=== PATIENT | female | born 1985 | race Caucasian/White ===

== ENCOUNTER 2022-02-19 11:58 | Inpatient (IN) | payer OTHER, SELFPAY ==
[2022-02-19] VITALS (73 sets, daily range): BP systolic 69–206; BP diastolic 38–188; PULSE 55–125; RESP 18; TEMP 36.4–36.7; O2SAT 83–100
[2022-02-19] MEDS: LACTATED RINGERS 1,000 ML 125 ML IV CONT ×2 (12:45→15:09)
[2022-02-19] MEDS: AMPICILLIN 2 GM/NS 100 ML 2 GM/100 ML BAG IVPB (12:45)
[2022-02-19 12:51] LABS: Basophils Absolute Auto 0.1 K/mm3 (0.0-0.1); Basophils Percent Auto 0.3 % (0.2-1.2); Eosinophils Absolute Auto 0.1 K/mm3 (0-0.3); Eosinophils Percent Auto 0.5 % (0-4.4); Hemoglobin 12.6 g/dL (12.0-15.0); Immature Granulocyte Absolute 0.07 K/mm3 (0.00-0.031); Immature Granulocyte Percent A 0.5 % (0-0.5); Lymphocytes Absolute Auto 2.23 K/mm3 (0.9-3.2); Mean Corpuscular HGB Conc 32.3 g/dl (32-36); Mean Corpuscular Hemoglobin 30.4 pg (26-34); Mean Corpuscular Volume 94.2 fl (80-100); Mean Platelet Volume 9.9 fl (7.4-10.4); Monocytes Absolute Auto 0.8 K/mm3 (0.1-0.6); Monocytes Percent Auto 5.6 % (2.6-8.5); Neutrophils Absolute Auto 11.6 K/mm3 (1.3-6.7); Neutrophils Percent Auto 78.1 % (45.5-73.1); Platelet Count Result 441 k/mm3 (150-375); Red Blood Count 4.14 M/mm3 (4.2-5.4); Red Cell Distribution Width 13.5 % (11.5-14.5); White Blood Count 14.9 K/mm3 (4.5-10.0)
[2022-02-19 13:27] LABS: Amphetamine Screen Urine Negative (Negative); Barbiturate Screen Urine Negative (Negative); Benzodiazepines Screen Urine Negative (Negative); Cannabinoid Screen Urine Positive (Negative); Cocaine Screen Urine Negative (Negative); Methadone Screen Urine Negative (Negative); Opiate Screen Urine Negative (Negative); Phencyclidine Screen Urine Negative (Negative)
--- NOTE | 2022-02-19 15:10 | WPDANESEPP ---
Anes - Eval Pre Procedure Procedure: labor epidural Date/Time: 02/19/22 15:10 Preop Diagnosis: labor pain Pre Op Diagnosis: Labor Patient Data Age: 36 Gender: F Height: Weight: Last Vital Signs Pulse 76 02/19/22 15:06 BP 84/67 L 02/19/22 15:06 Pulse Ox 100 02/19/22 15:05 O2 Del Method Room Air 02/19/22 13:00 Laboratory Tests 02/19/22 02/19/22 02/19/22 12:37 12:37 12:37 WBC 14.9 K/mm3 H K/mm3 (4.5-10.0) RBC 4.14 M/mm3 L M/mm3 (4.2-5.4) Hgb 12.6 g/dL g/dL (12.0-15.0) Hct 39.0 % % (37.0-47.0) MCV 94.2 fl fl (80-100) MCH 30.4 pg pg (26-34) MCHC 32.3 g/dl g/dl (32-36) RDW 13.5 % % (11.5-14.5) Plt Count 441 k/mm3 H k/mm3 (150-375) MPV 9.9 fl fl (7.4-10.4) Immature Gran % (Auto) 0.5 % % (0-0.5) Neut % (Auto) 78.1 % H % (45.5-73.1) Lymph % (Auto) 15.0 % L % (18.3-44.2) [place] % (Auto) 5.6 % % (2.6-8.5) Eos % (Auto) 0.5 % % (0-4.4) Baso % (Auto) 0.3 % % (0.2-1.2) Lymph # (Auto) 2.23 K/mm3 K/mm3 (0.9-3.2) [place] # (Auto) 0.8 K/mm3 H K/mm3 (0.1-0.6) Eos # (Auto) 0.1 K/mm3 K/mm3 (0-0.3) Baso # (Auto) 0.1 K/mm3 K/mm3 (0.0-0.1) Abs Immat Gran (auto) 0.07 K/mm3 H K/mm3 (0.00-0.031) Absolute Neuts (auto) 11.6 K/mm3 H K/mm3 (1.3-6.7) Absolute Nucleated RBC 0.0 K/mm3 K/mm3 (0.0-0.012) Nucleated RBC % 0.0 % % (0.0-0.2) Urine Opiates Screen Urine Methadone Screen Ur Barbiturates Screen Ur Phencyclidine Scrn Ur Amphetamine Screen U Benzodiazepines Scrn Urine Cocaine Screen U Cannabinoids Screen RPR Pending Blood Type A Positive Antibody Screen Negative 02/19/22 12:42 WBC RBC Hgb Hct MCV MCH MCHC RDW Plt Count MPV Immature Gran % (Auto) Neut % (Auto) Lymph % (Auto) [place] % (Auto) Eos % (Auto) Baso % (Auto) Lymph # (Auto) [place] # (Auto) Eos # (Auto) Baso # (Auto) Abs Immat Gran (auto) Absolute Neuts (auto) Absolute Nucleated RBC Nucleated RBC % Urine Opiates Screen Negative (Negative) Urine Methadone Screen Negative (Negative) Ur Barbiturates Screen Negative (Negative) Ur Phencyclidine Scrn Negative (Negative) Ur Amphetamine Screen Negative (Negative) U Benzodiazepines Scrn Negative (Negative) Urine Cocaine Screen Negative (Negative) U Cannabinoids Screen Positive A (Negative) RPR Blood Type Antibody Screen Patient hx anesthesia problems: none Family hx anesthesia problems: none Results Review: All pre-operative results and documents have been reviewed as part of the pre-operative evaluation. [facility] Social History Social History Substance use: current Spiritual care concerns: No Exam Day of Procedure 02/19/22 15:10 Patient weight: normal Heart: regular rate and rhythm Lungs: clear to auscultation and normal air movement Airway: Mallampati scale Neurological: alert and oriented
[2022-02-19] MEDS: OXYTOCIN 30 UNITS/NS 500 ML 30 UNITS/500 ML BAG IV CONT (16:51)
[2022-02-19] MEDS: AMPICILLIN 1 GM/NS 50 ML 1 GM/50 ML BAG IVPB (16:51)
[2022-02-19 17:06] LABS: Rapid Plasma Reagin Non-Reactive (NonReactive)
--- NOTE | 2022-02-19 18:04 | P.PCNOB_ITS ---
OB - Delivery Note Procedure Procedure: Induction method: None Delivery augmentation: Pitocin Delivery monitor: External FHT, External Uterine and Internal FHT Route of delivery: Episiotomy description: None Laceration Description: Vaginal Delivery repair: vicryl Quantitative Blood Loss (ml): 100 Anesthesia type: Epidural [place] Baby Date of : 02/19/22 Time of : 17:44 Weeks of gestation at delivery: 38 Weight (pounds): 5 Weight (ounces): 7 Placenta delivery description: Spontaneous Cord Vessel Description: 3 Vessels score one minute: 9 score ten minutes: 9
[2022-02-20] VITALS: BP 114/51; PULSE 72; RESP 18; TEMP 36.4; O2SAT 100
[2022-02-20 04:00] VITALS: BP 128/80; PULSE 77; RESP 18; TEMP 36.4; O2SAT 99
[2022-02-20 05:45] LABS: Basophils Absolute Auto 0.1 K/mm3 (0.0-0.1); Basophils Percent Auto 0.5 % (0.2-1.2); Eosinophils Absolute Auto 0.2 K/mm3 (0-0.3); Eosinophils Percent Auto 1.2 % (0-4.4); Hematocrit 35.7 % (37.0-47.0); Hemoglobin 11.6 g/dL (12.0-15.0); Immature Granulocyte Absolute 0.05 K/mm3 (0.00-0.031); Immature Granulocyte Percent A 0.3 % (0-0.5); Lymphocytes Absolute Auto 3.22 K/mm3 (0.9-3.2); Lymphocytes Percent Auto 22.1 % (18.3-44.2); Mean Corpuscular HGB Conc 32.5 g/dl (32-36); Mean Corpuscular Hemoglobin 30.9 pg (26-34); Mean Corpuscular Volume 95.2 fl (80-100); Mean Platelet Volume 10.3 fl (7.4-10.4); Monocytes Absolute Auto 1.2 K/mm3 (0.1-0.6); Neutrophils Absolute Auto 9.9 K/mm3 (1.3-6.7); Neutrophils Percent Auto 67.9 % (45.5-73.1); Platelet Count Result 378 k/mm3 (150-375); Red Blood Count 3.75 M/mm3 (4.2-5.4); Red Cell Distribution Width 13.6 % (11.5-14.5); White Blood Count 14.6 K/mm3 (4.5-10.0)
--- NOTE | 2022-02-20 08:18 | PM.OBPNVD ---
OB - PN: Subj Subjective Date/time seen: 02/20/22 08:18 Patient comments: no complaints, pain well controlled, incisional pain, tolerating diet and flatus present OB - PN: Obj Data Labs 02/20/22 04:31 Labs: Laboratory Results - last 24 hr 02/19/22 02/19/22 02/19/22 12:37 12:37 12:37 WBC 14.9 H RBC 4.14 L Hgb 12.6 Hct 39.0 MCV 94.2 MCH 30.4 MCHC 32.3 RDW 13.5 Plt Count 441 H MPV 9.9 Immature Gran % (Auto) 0.5 Neut % (Auto) 78.1 H Lymph % (Auto) 15.0 L [place] % (Auto) 5.6 Eos % (Auto) 0.5 Baso % (Auto) 0.3 Lymph # (Auto) 2.23 [place] # (Auto) 0.8 H Eos # (Auto) 0.1 Baso # (Auto) 0.1 Abs Immat Gran (auto) 0.07 H Absolute Neuts (auto) 11.6 H Absolute Nucleated RBC 0.0 Nucleated RBC % 0.0 Urine Opiates Screen Urine Methadone Screen Ur Barbiturates Screen Ur Phencyclidine Scrn Ur Amphetamine Screen U Benzodiazepines Scrn Urine Cocaine Screen U Cannabinoids Screen RPR Non-reactive Blood Type A Positive Antibody Screen Negative 02/19/22 02/20/22 12:42 04:31 WBC 14.6 H RBC 3.75 L Hgb 11.6 L Hct 35.7 L MCV 95.2 MCH 30.9 MCHC 32.5 RDW 13.6 Plt Count 378 H MPV 10.3 Immature Gran % (Auto) 0.3 Neut % (Auto) 67.9 Lymph % (Auto) 22.1 [place] % (Auto) 8.0 Eos % (Auto) 1.2 Baso % (Auto) 0.5 Lymph # (Auto) 3.22 H [place] # (Auto) 1.2 H Eos # (Auto) 0.2 Baso # (Auto) 0.1 Abs Immat Gran (auto) 0.05 H Absolute Neuts (auto) 9.9 H Absolute Nucleated RBC 0.0 Nucleated RBC % 0.0 Urine Opiates Screen Negative Urine Methadone Screen Negative Ur Barbiturates Screen Negative Ur Phencyclidine Scrn Negative Ur Amphetamine Screen Negative U Benzodiazepines Scrn Negative Urine Cocaine Screen Negative U Cannabinoids Screen Positive A RPR Blood Type Antibody Screen OB - PN A/P Plan day: 1 Plan: routine care Comments: No problems, routine care Time Spent With Patient Time: Total time spent is greater than 50% in coordination of care (as documented) at patient's floor/unit and/or counseling patient: Exam Const: General: comfortable, no acute distress and alert Resp: Effort & Inspection: normal respiratory effort Auscultation: no crackles, no rales and no rhonchi Cardio: Rate: regular rate Heart sounds: no click, no murmurs and no rubs GI: Inspection: non-distended GI Palp: No Tenderness to palpation present (GI) Auscultation: normal bowel sounds Other: Incision - CDI Extrem: General: normal to inspection, no pedal edema and no calf tenderness
[2022-02-20 08:30] VITALS: BP 116/65; PULSE 67; RESP 18; TEMP 36.3; O2SAT 100
--- NOTE | 2022-02-20 09:11 | WPDANLDPN2 ---
Anes-Prog Note L&D Date/Time: 02/20/22 09:11 Comfortable throughout: labor and delivery Neuraxial method: epidural Epidural/Spinal procedure site: clean & non-tender Neuro status: Neuro function grossly intact. Cardiovascular status: normal Respiratory status: normal Airway patency: baseline Mental status: baseline Post-Op hydration status: normal Vital Signs: Last Vital Signs Temp 97.6 F 02/20/22 04:00 Pulse 77 02/20/22 04:00 Resp 18 02/20/22 04:00 BP 128/80 02/20/22 04:00 Pulse Ox 99 02/20/22 04:00 O2 Del Method Room Air 02/19/22 20:32 Pain score (VAS): 0 Post-procedural complaints: none Patient feedback: Patient satisfied with anesthetic care.
[2022-02-20] MEDS: MULTIVIT/MIN/PREN/FOL AC/IRON TABLET 1 TAB PO (10:45)
[2022-02-20] MEDS: DOCUSATE SODIUM 100 MG CAPSULE PO ×2 (10:45→16:24)
[2022-02-20] MEDS: IBUPROFEN 600 MG TABLET PO ×2 (10:45→19:34)
--- NOTE | 2022-02-20 10:51 | PC.NURSE ---
Spoke with pt per her request. She was crying and stated that she just told the FOB about her admitted drug use of methamphetamine in Nov/Dec. and fentanyl that she snorted within 24 hours of hospital admission. She stated that the FOB left very irate and mad at her, calling her a piece of trash. Encouraged pt to call for assistance from staff if he returns and she feels that she needs support/security. RN listened to pt as she expressed her regret. She was rocking and holding the baby with positive bonding signs demonstrated. Listened to mom as she talked and encouraged her to continue to ibarra with the baby and to be consistent with her follow-up MD visits after discharge to express compliance with her medical team's care.
--- NOTE | 2022-02-20 11:06 | PCCCNOTE ---
Addendum entered by Nelida Arce, JESSA 03/10/22 08:27: Baby's umbilical cord results faxed to [facility] at [phone]. Addendum entered by Nelida Arce, JESSA 02/22/22 11:01: Spoke with RUBEN Zavaleta who reports [facility] worker, Anna Worley, or [phone], came Wednesday02/20/22 and reported they were to follow up with their [facility] cistern room working supervisor to determine next steps for baby boy and report back to [facility] to update staff. Pt. discharged yesterday, 02/21/22. Baby boy's 5th day will be Wednesday02/24/22, per RUBEN Zavaleta. Addendum entered by Nelida Arce, JESSA 02/20/22 14:06: Recvd email from [facility] that states: Thank you for submitting an online report (reference number [id number]) to the [facility] Child Abuse/Neglect Hotline. Your information has been reviewed and assessed by a Grand Jury Deputy Sheriff. A child abuse/neglect investigation will be initiated as a result of the information you provided. An Multimedia Engineer will make an attempt to see and assess the child(deangelo) within the next 24 hours. Your final intake ID number for this report is [id number]. --RUBEN Kirkland aware. Original Note: Recvd notice that pt. tested + for Marijuana during UDS. Baby's UDS also + for Marijuana. Baby's umbilical cord drug screen is pending. Pt. has admitted to Nursing Staff that she also used Fentanyl and Methamphetamines during . Pt. denied use of these drugs to Care Coordination, and only admitted to marijuana use. Pt. reports she plans to live at home with REYNALDO Alvarez(at bedside), baby boy, and pt's 24 year old sister. Pt. reports her support system includes her sister, Antonio's sister Nichelle, Antonio's mother, and pt's cousins. Pt. reports this is her first baby and has all supplies for him. Pt. states plans to get established with WIC, and already current with [facility]. Pt. denies prior [facility] involvement. RUBEN Kirkland aware of above and states baby likely be here for five more days, as baby is showing signs of withdrawals. DCFS report made: ID # [id number] with all this information. RN aware.
[2022-02-20 12:30] VITALS: BP 130/70; PULSE 67; RESP 18; TEMP 36.7; O2SAT 97
[2022-02-20 16:00] VITALS: BP 151/85; PULSE 69; RESP 16; TEMP 36.4
--- NOTE | 2022-02-20 16:07 | PC.NURSE ---
1545: DCFS here to see pt.
[2022-02-20 20:00] VITALS: BP 116/66; PULSE 80; RESP 18; TEMP 36.6; O2SAT 99
[2022-02-21 07:50] VITALS: BP 104/64; PULSE 60; RESP 16; TEMP 36.4; O2SAT 98
[2022-02-21 08:00] VITALS: PULSE 60; RESP 16; O2SAT 98
[2022-02-21] MEDS: IBUPROFEN 600 MG TABLET PO (12:04)
[2022-02-21] MEDS: DOCUSATE SODIUM 100 MG CAPSULE PO (12:05)
--- NOTE | 2022-02-21 15:28 | PM.OBPNVD ---
OB - PN: Subj Subjective Date/time seen: 02/21/22 15:28 Patient comments: no complaints, pain well controlled and tolerating diet OB - PN: Obj Data Labs 02/20/22 04:31 OB - PN A/P Time Spent With Patient Time: Total time spent is greater than 50% in coordination of care (as documented) at patient's floor/unit and/or counseling patient:
--- NOTE | 2022-02-21 15:29 | PM.OBDSVD ---
DS: Admitting Diagnosis Discharge Date 02/21/22 Admitting Diagnosis term OB - DS: Summary Hospital Course Hospital Course: Presented in labor, history of narcotic dependency/opioids. Vaginal . OB Procedures : None OB Procedures Intrapartum: Spontaneous Vag Delivery OB Procedures: : None Time Spent with Patient Time attestation: Total time spent providing and/or coordinating discharge services: DS: Data Data Completed and Pending Pending studies at discharge: Pending at discharge 02/19/22 19:12 Surgical [PTH] Routine Labs on day of discharge: Preliminary micro results at discharge 02/19/22 18:21 Anaerobic Culture - Preliminary Thigh Right Aerobic Culture - Preliminary Staphylococcus aureus Discharge Plan Discharge Discharging Clinician: Steven Montero Patient Disposition: Home, Self-Care Activity: pelvic rest Diet: regular Patient Instructions: Antibiotic Form Stand Alone Forms: General Discharge Information Follow-up/Referrals: Steven Montero MD [Physician] - Discharge Medications: Continued 28-800 mg-mcg Tablet 1 tablet PO DAILY Date of admission: 02/19/22 11:58 Primary Care Provider: PHYSICIAN,[employer]ATT[employer]RE CHIEF Admitting Provider: Steven Montero Attending physician on admission: Steven Montero Condition: Stable
== END 2022-02-21 17:20 | disposition home or self-care (01) | DRG 560 ==
LOC: ANHLDR 12:29 → ANHOB2 20:53
PROVIDERS: Admitting Provider Obstetrics & Gynecology; Visit Provider Obstetrics & Gynecology
DX: O76 Abnormality in fetal heart rate and rhythm complicating labor and delivery (principal); O99.324 Drug use complicating childbirth; O69.89X0 Labor and delivery complicated by other cord complications, not applicable or unspecified; O70.0 First degree perineal laceration during delivery; Z3A.38 38 weeks gestation of pregnancy; Z37.0 Single live birth; F12.90 Cannabis use, unspecified, uncomplicated
CPT/HCPCS: 36415; 80307; 85025; 86592; 86850; 86900; 86901; 87070; 87075; 87147; 87181; 87186; 87205; 88307; A9270; J0290; J2590; J2795; J7120